=== PATIENT | male | born 1980 | race Caucasian/White ===

== ENCOUNTER → 2023-03-20 09:46 | Outpatient (REF) | payer BC, SELFPAY | LOC: WDC 09:46 | PROVIDERS: ATTENDING PHYSICIAN Nurse Practitioner Adult Health | DX: N64.52 Nipple discharge (principal) | CPT/HCPCS: 76642; 77062; 77066 ==

== ENCOUNTER → 2023-04-14 20:42 | Outpatient (REF) | payer BC, SELFPAY | LOC: MRI 3T 20:42 | PROVIDERS: ATTENDING PHYSICIAN Registered Nurse | DX: N64.52 Nipple discharge (principal) | CPT/HCPCS: 77049; A9585 ==

== ENCOUNTER → 2023-04-28 | Outpatient (REF) | payer BC, SELFPAY | LOC: DHSLP | PROVIDERS: ATTENDING PHYSICIAN Registered Nurse | DX: G47.33 Obstructive sleep apnea (adult) (pediatric) (principal) | CPT/HCPCS: 95800 ==

== ENCOUNTER → 2024-06-06 07:25 | Outpatient (REF) | payer BC, SELFPAY | LOC: RAD 07:25 | PROVIDERS: ATTENDING PHYSICIAN Registered Nurse | DX: K40.90 Unilateral inguinal hernia, without obstruction or gangrene, not specified as recurrent (principal) | CPT/HCPCS: 76705 ==